=== PATIENT | female | born 2000 | race Caucasian/White ===

== ENCOUNTER 2020-11-06 00:19 | Emergency (ER) | payer BC ==
[2020-11-06 00:44] VITALS: O2SAT 100
[2020-11-06] MEDS ORDERED: Diflucan 100 MG PO STA (01:09)
--- NOTE | 2020-11-06 01:16 | ERPHSYRPT ---
- History of Present Illness Time Seen by Provider: 11/06/20 00:45 Source: patient Exam Limitations: no limitations Patient Subjective Stated Complaint: pt states she thinks she has a really bad yeast infection. states she has had itching, burning, and discharge in vaginal area for last several weeks. today woke up with swelling Triage Nursing Assessment: pt alert and oriented, answers questions approp. pt ambulatory with steady gait noted. respirations nonlabored. skin warm and dry. Physician History: Patient is a 20-year-old female presents to our ED for evaluation of suspected yeast infection. Patient describes a whitish discharge mild burning sensation and itching. Patient states her labia are swollen. Patient was treated for a strep throat infection and was given antibiotics at that time. Patient symptoms started shortly thereafter. Symptoms have been ongoing for approximately 3 weeks at this point. Patient denies the possibility of STI. Patient denies possibility of . Patient is otherwise asymptomatic. No pelvic pain no abdominal pain. Patient declined a pelvic exam patient prefers to be treated with Diflucan first. Patient is otherwise healthy. Grandmother at bedside. They voiced no other complaints or concerns at this time. Timing/Duration: week(s) (3 weeks) Severity: moderate Modifying Factors: Improves With: nothing Associated Symptoms: No nausea, No vomiting, No abdominal pain, No shortness of breath, No heartburn, No diaphoresis, No cough, No chest pain, No fever, No headaches, No loss of appetite, No syncope Allergies/Adverse Reactions: azithromycin [From Zithromax] Allergy (Intermediate, Verified 11/06/20 00:45) Hives Home Medications: Escitalopram Oxalate 10 mg [Lexapro 10 MG] 10 mg PO DAILY 11/06/20 [History] Hx Tetanus, Diphtheria Vaccination/Date Given: Yes Hx Influenza Vaccination/Date Given: Yes Hx Pneumococcal Vaccination/Date Given: No Immunizations Up to Date: Yes Travel Risk - International Travel Have you traveled outside of the country in past 3 weeks: No - Coronavirus Screening Are you exhibiting any of the following symptoms?: No Close contact with a COVID-19 positive Pt in past 14-21 Days: No - Vaccine Status Have you recieved a Covid-19 vaccination: Yes Service Provider: [facility] - Vaccination Dates Date of 2cond Vaccination (if applicable): scheduled - Review of Systems Constitutional: No Fever, No Chills Eyes: No Symptoms Ears, Nose, & Throat: No Symptoms Respiratory: No Symptoms, No Cough, No Dyspnea Cardiac: No Symptoms, No Chest Pain, No Edema, No Syncope Abdominal/Gastrointestinal: No Symptoms, No Abdominal Pain, No Nausea, No Vomiting, No Diarrhea Genitourinary Symptoms: No Symptoms, No Dysuria Musculoskeletal: No Symptoms, No Back Pain, No Neck Pain Skin: No Symptoms, No Rash Neurological: No Symptoms, No Dizziness, No Focal Weakness, No Sensory Changes Psychological: No Symptoms Endocrine: No Symptoms Hematologic/Lymphatic: No Symptoms Immunological/Allergic: No Symptoms All Other Systems: Reviewed and Negative - Past Medical History Pertinent Past Medical History: No - Past Surgical History Past Surgical History: No - Social History Smoking Status: Current every day smoker How long have you smoked: 4 yrs Exposure to second hand smoke: No Drug Use: none Patient Lives Alone: Yes - Female History Hx Last Menstrual Period: approx 2 weeks Hx Now: No - Nursing Vital Signs Nursing Vital Signs: Initial Vital Signs Temperature 98.2 F 11/06/20 00:31 Pulse Rate 79 11/06/20 00:31 Respiratory Rate 16 11/06/20 00:31 Blood Pressure 98/59 11/06/20 00:31 O2 Sat by Pulse Oximetry 100 11/06/20 00:31 Pain Scale Pain Intensity 6 - Physical Exam General Appearance: no apparent distress, alert Eye Exam: PERRL/EOMI, eyes nml inspection Ears, Nose, Throat Exam: normal ENT inspection, TMs normal, pharynx normal, moist mucous membranes Neck Exam: normal inspection, non-tender, supple, full range of motion Respiratory Exam: normal breath sounds, lungs clear, No respiratory distress Cardiovascular Exam: regular rate/rhythm, normal heart sounds, normal peripheral pulses Gastrointestinal/Abdomen Exam: soft, normal bowel sounds, No tenderness, No mass Back Exam: normal inspection, normal range of motion, No CVA tenderness, No vertebral tenderness Extremity Exam: normal inspection, normal range of motion, pelvis stable Neurologic Exam: alert, oriented x 3, cooperative, normal mood/affect, nml cerebellar function, sensation nml, No motor deficits Skin Exam: normal color, warm, dry, No rash Lymphatic Exam: No adenopathy SpO2 Interpretation: normal SpO2: 100 O2 Delivery: Room Air - Course Nursing assessment & vital signs reviewed: Yes Ordered Tests: Medication Summary Discontinued Medications Generic Name Dose Route Start Last Admin Trade Name Vidal PRN Reason Stop Dose Admin Fluconazole 150 mg 11/06/20 01:09 Diflucan 100 Mg PO 11/06/20 01:10 ONCE STA - Progress Progress: improved Progress Note: Patient likely has yeast infection. Patient declined a pelvic exam. Patient requests to treat for yeast infection at this time. Given recent antibiotic use just prior to onset of symptoms it is likely that her symptoms are due to use. We will treat patient with Diflucan. 150 mg p.o. was provided to patient in our ED. A second dose will be forwarded to patient's pharmacy. This dose is to be administered on 11/08/2020. Patient agrees to follow-up with primary care doctor within 48 hours for reevaluation. 11/06/20 01:24 Counseled pt/family regarding: diagnosis, need for follow-up - Departure Departure Disposition: Home Clinical Impression: Vaginal yeast infection Condition: Stable Critical Care Time: No Referrals: DOCTOR,NO FAMILY [Primary Care Provider] - TIN BAKER MD [ACTIVE STAFF] - Additional Instructions: Discharge/Care Plan EMY BOSTON was seen on 11/06/20 in the Emergency Room. The patient was counseled regarding Diagnosis,Lab results, Imaging studies, need for follow up and when to return to the Emergency Room. Prescriptions given: Discharge Note I have spoken with the patient and/or caregivers. I have explained the patient's condition, diagnosis and treatment plan based on the information available to me at this time. I have answered the patient's and/or caregiver's questions and addressed any concerns. The patient and/or caregivers have as good understanding of the patient's diagnosis, condition and treatment plan as can be expected at this point. The vital signs have been stable. The patient's condition is stable and appropriate for discharge from the emergency department. The patient will pursue further outpatient evaluation with the primary care physician or other designated or consulting physician as outlined in the discharge instructions. The patient and/or caregivers are agreeable to this plan of care and follow-up instructions have been explained in detail. The patient and/or caregivers have received these instruction. The patient/and or caregivers are aware that any significant change in condition or worsening of symptoms should prompt an immediate return to this or the closest emergency department or call 911. Prescriptions: Fluconazole [Diflucan ] 150 mg PO DAILY 1 Days tablet
[2020-11-06 01:54] VITALS: BP 111/68; PULSE 72
== END 2020-11-06 01:50 | disposition home or self-care (01) ==
LOC: ED 00:19
DX: B37.3 Candidiasis of vulva and vagina (principal)
CPT/HCPCS: 99283; A9270-GY